=== PATIENT | female | born 1995 | race Caucasian/White ===

== ENCOUNTER 2019-10-14 12:20 | Emergency (ER) | payer BC ==
[~2019-10-14] VITALS: Ht 172.7 cm; Wt 61.2 kg
[2019-10-14] MEDS ORDERED: PAXIL40 MG (12:55)
[2019-10-14] MEDS ORDERED: CLONAZEPAM0.125 MG (12:55)
== END 2019-10-14 21:25 | disposition home or self-care (01) ==
LOC: ER 12:20
DX: T17.298A Other foreign object in pharynx causing other injury, initial encounter (principal); R07.0 Pain in throat; R13.19 Other dysphagia; X58.XXXA Exposure to other specified factors, initial encounter; Y93.89 Activity, other specified; Y92.89 Other specified places as the place of occurrence of the external cause; Y99.8 Other external cause status